=== PATIENT | female | born 1960 | race Caucasian/White ===

== ENCOUNTER 2019-01-17 17:03 | Emergency (ER) | payer MEDICAID ==
[~2019-01-17] VITALS: Ht 152.4 cm; Wt 60.3 kg
[~2019-01-17 17:03] MED LIST: ACET325T14 PO; FLUC100T4 PO; MUPI15CR TP; No meds per pt.; OXYC-306 PO; OXYC1TAB7 PO; PROM25AM6 PO
[2019-01-17] MEDS ORDERED: ASPIRIN 81 MG TABLET CHEW PO ONE (17:30)
[2019-01-17 17:39] LABS: BASOPHILS # (AUTO) 0.04 x10^3/uL (0-0.1); BASOPHILS % (AUTO) 1 % (0-1); EOSINOPHILS # (AUTO) 0.17 x10^3/uL (0-0.4); EOSINOPHILS % (AUTO) 2 % (1-7); LYMPHOCYTES # (AUTO) 1.12 x10^3/uL (1-3.4); LYMPHOCYTES % (AUTO) 16 % (22-44); MD NO; MEAN CORPUSCULAR HEMOGLOBIN 31.1 pg (27.0-34.8); MEAN CORPUSCULAR HGB CONC 34.3 g/dL (32.4-35.8); MEAN CORPUSCULAR VOLUME 90.6 fL (80-100); MEAN PLATELET VOLUME 8.9 fL (7.4-10.4); MONOCYTES # (AUTO) 0.85 x10^3/uL (0.2-0.8); MONOCYTES % (AUTO) 12 % (2-9); NEUTROPHILS # (AUTO) 4.99 x10^3/uL (1.8-6.8); NEUTROPHILS % (AUTO) 70 % (42-75); PLATELET COUNT 181 x10^3/uL (130-400); RED BLOOD COUNT 4.82 x10^6/uL (3.82-5.3); RED CELL DISTRIBUTION WIDTH 12.6 % (9.6-15.2)
[2019-01-17 17:50] LABS: ALBUMIN 3.8 g/dL (3.4-5.0); ANION GAP 3 mmol/L (5-15); CALCIUM 8.9 mg/dL (8.5-10.1); CHLORIDE 108 mmol/L (98-107); CREATININE 0.65 mg/dL (0.55-1.02)
[2019-01-17 18:02] LABS: TROPONIN I < 0.015 ng/mL (0.000-0.045)
--- NOTE | 2019-01-17 18:05 | NUR ---
PT REPORTS HAVING A COUGH FOR 3 DAYS, SORE THROAT, AND HEAVINESS IN THE CHEST. PT IS ALERT, ORIENTED, WITH NAD. PT IS CONNECTED TO THE MONITOR. CALL LIGHT WITHIN REACH.
[2019-01-17] MEDS ORDERED: ASPIRIN 81 MG TABLET CHEW ONE (18:08)
[2019-01-17 18:21] VITALS: BP 132/72
--- NOTE | 2019-01-17 19:13 | NUR ---
Report given to Kelley SNELL.
== END 2019-01-17 19:37 | disposition home or self-care (01) ==
LOC: ED 19:00
DX: J20.8 Acute bronchitis due to other specified organisms (principal); B97.89 Other viral agents as the cause of diseases classified elsewhere
CPT/HCPCS: 36415; 71046; 80048; 82040; 83880; 84484; 85025; 93005; 99284

== ENCOUNTER 2019-01-22 15:54 | Emergency (ER) | payer MEDICAID ==
[~2019-01-22] VITALS: Ht 154.9 cm; Wt 59.5 kg
--- NOTE | 2019-01-22 16:19 | NUR ---
FIRST CONTACT WITH PT. PT REPORTS NO IMPROVEMENT IN COUGH SINCE RX'D Z-PACK ON SUNDAY; "I FEEL LIKE NO PHLEGM IS COMING UP". RESPIRATIONS EVEN AND UNLABORED; SPO2 >90% ON RA. FREQUENT NON-PRODUCTIVE COUGH NOTED. BP/SPO2 MONITORING IN PLACE. ERP AT BEDSIDE FOR INITIAL ASSESSMENT. AWAITING FURTHER ORDERS
[2019-01-22 16:20] VITALS: BP 130/70
--- NOTE | 2019-01-22 16:55 | NUR ---
DC EDUCATION PROVIDED, PT DEMONSTRATES UNDERSTANDING. PT AMBULATED STEADILY TO DC WITH RN.
== END 2019-01-22 16:57 | disposition home or self-care (01) ==
LOC: ED 16:46
DX: J00 Acute nasopharyngitis [common cold] (principal); B97.89 Other viral agents as the cause of diseases classified elsewhere; F41.1 Generalized anxiety disorder; F32.9 Major depressive disorder, single episode, unspecified; Z90.710 Acquired absence of both cervix and uterus; Z90.12 Acquired absence of left breast and nipple
CPT/HCPCS: 71046; 99283